=== PATIENT | male | born 1980 | race Two or more races ===

== ENCOUNTER 2022-10-26 12:38 | Emergency (ER) | payer OTHER ==
[2022-10-26] MEDS ORDERED: Bacitracin Oint 1 GM U/D Packet TOP ONE (12:53)
[2022-10-26] MEDS ORDERED: Acetaminophen/HYDROcodone 325-5 MG Tab PO ONE (12:53)
[2022-10-26] MEDS ORDERED: Cephalexin 500 MG Cap PO ONE (12:53)
[2022-10-26] MEDS ORDERED: Diphtheria,Pertussis(Acell),Tetanus Vaccine 0.5 ML Syringe IM ONE (12:59)
== END 2022-10-26 14:13 | disposition home or self-care (01) ==
LOC: MW.ED 12:38
DX: S02.5XXA Fracture of tooth (traumatic), initial encounter for closed fracture (principal); S01.81XA Laceration without foreign body of other part of head, initial encounter; Z23 Encounter for immunization; W22.09XA Striking against other stationary object, initial encounter; Y99.0 Civilian activity done for income or pay
CPT/HCPCS: 70450; 70486; 90471; 90715; 99283; A9270